=== PATIENT | male | born 2000 | race Hispanic/Latino ===

== ENCOUNTER 2021-07-28 14:19 | Emergency (ER) | payer OTHER ==
[~2021-07-28] VITALS: Ht 172.7 cm; Wt 99.8 kg
[2021-07-28 15:45] LABS: BASOPHILS % (AUTO) 0.2 % (0.0-5.0); EOSINOPHILS % (AUTO) 0.2 % (0.0-8.0); HEMATOCRIT 48.3 % (42-54); LYMPHOCYTES % (AUTO) 5.9 % (21.0-51.0); MEAN CORPUSCULAR HEMOGLOBIN 28.4 pg (27.0-33.0); MEAN CORPUSCULAR HGB CONC 34.4 g/dL (32.0-36.0); MEAN CORPUSCULAR VOLUME 82.7 fL (79-99); MONOCYTES % (AUTO) 4.1 % (3.0-13.0); NEUTROPHILS % (AUTO) 89.1 % (40.0-77.0); PLATELET COUNT (AUTO) 245 K/uL (130-400); RED BLOOD CELL COUNT(AUTO) 5.84 MIL/uL (4.50-6.20); RED CELL DISTRIBUTION WIDTH 13.6 % (11.0-15.5); WHITE BLOOD COUNT (AUTO) 15.3 K/uL (4.8-10.8)
[2021-07-28 16:02] LABS: CARBON DIOXIDE 24 mmol/L (21-32); CHLORIDE 101 mmol/L (101-111); GLOMERULAR FILTR. RATE CALC 99 mL/min (>60); GLUCOSE,RANDOM 111 mg/dL (70-105); POTASSIUM 3.9 mmol/L (3.5-5.1); SODIUM SERUM 138 mmol/L (136-145); UREA NITROGEN, BLOOD 16 mg/dL (7-18)
[2021-07-28 16:06] LABS: APPEARANCE,URINE Clear (CLEAR); BILIRUBIN,URINE Negative (NEGATIVE); COLOR,URINE Yellow (YELLOW); GLUCOSE, URINE (UA) Negative (NEGATIVE); KETONES,URINE 15 mg/dL (NEGATIVE); LEUKOCYTE ESTERASE ,URINE Trace (NEGATIVE); NITRATE,URINE Negative (NEGATIVE); OCCULT BLOOD,URINE Negative (NEGATIVE); PROTEIN,URINE Negative (NEGATIVE); UROBILINOGEN,URINE 0.2 mg/dL (0.2-1.0)
[2021-07-28 16:06] LABS: ALANINE AMINOTRANSFERASE 30 U/L (12-78); ALBUMIN 4.7 g/dL (3.5-5.0); AMYLASE 43 U/L (25-115); ASPARTATE AMINOTRANSFERASE 18 U/L (10-37); BILIRUBIN,TOTAL 1.1 mg/dL (0.2-1.0); TOTAL PROTEIN, SERUM 8.4 g/dL (6.0-8.3)
[2021-07-28 16:10] LABS: LIPASE < 50 U/L (114-286)
[2021-07-28 16:17] LABS: BACTERIA,URINE None Seen /HPF (None Seen); RBC,URINE None Seen /HPF (0-1); WBC,URINE 0-1 /HPF (0-1)
[2021-07-28 16:18] LABS: SQUAMOUS EPITHELIAL CELL,UR None Seen /HPF (0-2)
[2021-07-28] MEDS ORDERED: MORPHINE 4 MG SYG IV ONE (17:00)
[2021-07-28] MEDS ORDERED: 0.9%NACL 1000ML 1,000 ML IV SCH (17:00)
[2021-07-28] MEDS ORDERED: ONDANSETRON 4MG INJ IVP ONE (17:00)
[2021-07-28] MEDS ORDERED: MORPHINE 2 MG SYG IV ONE (17:30)
[2021-07-28] MEDS ORDERED: MORPHINE 2 MG SYG IM ONE (19:30)
[2021-07-28] MEDS ORDERED: METR375C2 PO (19:36)
[2021-07-28] MEDS ORDERED: DICY20TA2 PO (19:36)
[2021-07-28] MEDS ORDERED: ONDA4TAB4 PO (19:36)
[2021-07-28] MEDS ORDERED: DICYCLOMINE 20MG (10MG/ML) AMP IM ONE ×2 (20:12→20:27)
[2021-07-28] MEDS ORDERED: FAMOTIDINE 20MG VIAL IV ONE (20:30)
[2021-07-28] MEDS ORDERED: METOCLOPRAMIDE 10 MG/2 ML VIAL IVP ONE (20:30)
[2021-07-28] MEDS ORDERED: DiphenhydrAMINE HCL 50 MG/ML VIAL IV ONE (20:30)
[2021-07-28 21:30] VITALS: BP 131/68
== END 2021-07-28 21:35 | disposition home or self-care (01) ==
LOC: EDH 14:19
DX: A08.4 Viral intestinal infection, unspecified (principal); E86.9 Volume depletion, unspecified; K85.90 Acute pancreatitis without necrosis or infection, unspecified; K29.70 Gastritis, unspecified, without bleeding; F17.210 Nicotine dependence, cigarettes, uncomplicated; Z79.899 Other long term (current) drug therapy; Z90.49 Acquired absence of other specified parts of digestive tract
CPT/HCPCS: 36415; 74176; 80053; 81001; 82150; 83690; 85025; 96361; 96372 ×2; 96374; 96375; 99285; J0500; J1200; J2405; J2765; J3490; J7030